=== PATIENT | female | born 1975 ===

== ENCOUNTER 2017-08-13 03:55 | Emergency (ER) | payer SELFPAY ==
[2017-08-13] MEDS ORDERED: Sodium Chloride 0.9% 1,000 ML IV STA (05:05)
--- NOTE | 2017-08-13 05:18 | ED PDOC ---
HPI: General Adult Time Seen by Provider: 08/13/17 04:35 Chief Complaint (Nursing): Headache History Per: Patient, Operations And Intelligence Assistant (Azeri [id number]) Additional Complaint(s): Pt. states for the past 2 days she's had heavy vaginal bleeding associated with pelvic pain. States she usually only has to use 2 pads per day but yesterday she 's had to use 10 and this morning she's had to use 5 already. This morning she developed a gradual onset atraumatic headache localized to the top of her head associated with nausea but no vomiting. Reports a hx of migraine headaches but states this headache is different as her previous headaches are usually localized to the L side of the head. Denies head injury, LOC, N/V/D, fever, dysuria, hematuria, hx of anemia, weakness, palpitations. Past Medical History Reviewed: Historical Data, Nursing Documentation, Vital Signs Vital Signs: Last Vital Signs Temp 98.2 F 08/13/17 04:30 Pulse 63 08/13/17 04:30 Resp 18 08/13/17 04:30 BP 143/74 08/13/17 04:30 Pulse Ox 99 08/13/17 05:26 - Medical History PMH: TIA - Surgical History Surgical History: Cholecystectomy, - Family History Family History: States: No Known Family Hx - Home Medications Home Medications: Ambulatory Orders Medication Instructions Recorded Cyclobenzaprine [Flexeril] 5 mg PO Q8 PRN #15 tab 03/16/16 Naproxen [Naprosyn] 1 tab PO BID PRN #60 tab 03/16/16 Ketorolac Tromethamine [Toradol] 10 mg PO Q6 #30 tab 07/11/16 Ibuprofen [Motrin Tab] 600 mg PO Q6 PRN #15 tab 09/06/16 Ondansetron [Zofran] 4 mg PO Q6H PRN #10 tab 09/06/16 Acetaminophen [Tylenol 325mg tab] 325 mg PO Q4 #30 tab 11/28/16 - Allergies Allergies/Adverse Reactions: Allergies Allergy/AdvReac Type Severity Reaction Status Date / Time No Known Allergies Allergy Verified 08/13/17 04:29 Review of Systems ROS Statement: Except As Marked, All Systems Reviewed And Found Negative Genitourinary Female: Positive for: Vaginal Bleeding, Pelvic Pain Neurological: Positive for: Headache Physical Exam - Physical Exam Appears: Positive for: Well, Non-toxic, No Acute Distress Head Exam: Positive for: ATRAUMATIC, NORMAL INSPECTION, NORMOCEPHALIC Skin: Positive for: Normal Color, Warm. Negative for: Rash Eye Exam: Positive for: EOMI, Normal appearance, PERRL ENT: Positive for: Normal ENT Inspection Neck: Positive for: Normal, Painless ROM Cardiovascular/Chest: Positive for: Regular Rate, Rhythm Respiratory: Positive for: CNT, Normal Breath Sounds Gastrointestinal/Abdominal: Positive for: Normal Exam, Soft. Negative for: Tenderness Back: Positive for: Normal Inspection. Negative for: L CVA Tenderness, R CVA Tenderness Extremity: Positive for: Normal ROM Neurologic/Psych: Positive for: Alert, Oriented - Laboratory Results Urine POC: Negative - ECG O2 Sat by Pulse Oximetry: 99 - Progress ED Course And Treament: Labs ordered. Toradol 15mg IV, reglan 10mg IV, IV NS bolus ordered. Re-evaluation Time: 06:00 (Headache has resolved; pelvic pain has improved but is still present) Condition: Re-examined, Improved Disposition - Clinical Impression Clinical Impression: Vaginal bleeding, Headache - Patient ED Disposition Is Patient to be Admitted: Transfer of Care (Signed out to Dr. Boudreaux pending labs and US results.) - Disposition Disposition: Transfer of Care Disposition Time: 06:06 Condition: STABLE Forms: [facility] (Italian)
[2017-08-13 06:06] LABS: ALB/GLOB RATIO 1.1 (1.0-2.1); ALKALINE PHOSPHATASE 50 U/L (38-126); ALT/SGPT 34 U/L (9-52); AST/SGOT 29 U/L (14-36); BASO % 0.3 % (0.0-2.0); BILIRUBIN,TOTAL 0.3 mg/dl (0.2-1.3); BLOOD UREA NITROGEN 8 mg/dl (7-17); CALCIUM 8.8 mg/dL (8.4-10.2); CARBON DIOXIDE 26 mmol/L (22-30); CHLORIDE 107 mmol/L (98-107); EOS % 0.8 % (0.0-4.0); GFR AFRICAN-AMERICAN > 60; GLUCOSE,RANDOM 97 mg/dL (65-105); LYMPH % 37.3 % (20.0-40.0); MEAN CELL VOLUME 84.9 fl (81.0-99.0); MEAN CORPUSCULAR HEMOGLOBIN 27.8 pg (27.0-31.0); MEAN CORPUSCULAR HGB CONC 32.7 g/dL (33.0-37.0); MEAN PLATELET VOLUME 9.8 fl (7.2-11.7); MONO # 0.5 K/uL (0.0-0.8); MONO % 10.3 % (0.0-10.0); NEUT # 2.7 K/uL (1.8-7.0); NEUT % 51.3 % (50.0-75.0); NRBC % 0.1 % (0.0-0.0); POTASSIUM 3.8 MMOL/L (3.6-5.0); RED CELL DISTRIBUTION WIDTH 13.6 % (11.5-14.5); SODIUM 142 mmol/l (132-148); TOTAL PROTEIN 7.3 G/DL (6.3-8.2); WHITE BLOOD COUNT 5.3 K/uL (4.8-10.8)
[2017-08-13 06:08] LABS: RBC URINE 6236 /hpf (0-3); URINE BILIRUBIN NEGATIVE (NEGATIVE); URINE BLOOD LARGE (NEGATIVE); URINE COLOR RED (YELLOW); URINE GLUCOSE (UA) NEG (Normal); URINE KETONE NEGATIVE (NEGATIVE); URINE LEUKOCYTE ESTERASE NEG Leu/uL (Negative); URINE PROTEIN 100 mg/dL (NEGATIVE); URINE UROBILINOGEN 0.2-1.0 mg/dL (0.2-1.0); WBC URINE 5 /hpf (0-5)
--- NOTE | 2017-08-13 06:31 | ED PDOC ---
- Laboratory Results Result Diagrams: 08/13/17 05:15 08/13/17 05:15 Urine POC: Negative - ECG O2 Sat by Pulse Oximetry: 99 (RA) Pulse Ox Interpretation: Normal Medical Decision Making Medical Decision Making: Time: 6:00 --Patient signed out to me by Donta Bradley PA-C pending labs and CT Time: 7:00 --Patient signed out by me to Dr. Red pending labs and CT Scribe Attestation: Documented by Tommy Kirk, acting as a scribe for Dr. Vishnu Boudreaux MD. Provider Scribe Attestation: All medical record entries made by the Scribe were at my direction and personally dictated by me. I have reviewed the chart and agree that the record accurately reflects my personal performance of the history, physical exam, medical decision making, and the department course for this patient. I have also personally directed, reviewed, and agree with the discharge instructions and disposition. Disposition - Clinical Impression Clinical Impression: Vaginal bleeding, Headache - POA Present On Arrival: None - Disposition Disposition: Transfer of Care Disposition Time: 07:00 Condition: FAIR Additional Instructions: Followup with ROBOTICS SOFTWARE ENGINEER doctor this week. Return to ER for any worsening or persistent bleeding, weakness/dizziness or any concern. Print Language: SLOVENIAN Patient Signed Over To: Bib Red III
--- NOTE | 2017-08-13 07:02 | ED PDOC ---
- Laboratory Results Result Diagrams: 08/13/17 05:15 08/13/17 05:15 Urine POC: Negative - ECG O2 Sat by Pulse Oximetry: 99 (RA) Medical Decision Making Medical Decision Makinam recd pending US for heavy vaginal bleeding [id number] HISTORY: pelvic pain COMPARISON: None available. TECHNIQUE: Transabdominal pelvic ultrasound was performed. FINDINGS: UTERUS: Measures 13.8 x 6.8 x 6.9 cm. Anteverted, normal in size and appearance. No fibroid or other mass lesion seen. ENDOMETRIUM: Measures 5.0 mm in diameter. Unremarkable. CERVIX: No cervical abnormality identified. RIGHT OVARY: Measures 2.5 x 2.9 x 1.6 cm. No solid mass. Normal flow. LEFT OVARY: Measures 2.4 x 2.3 x 2.0 cm. No solid mass. Normal flow. FREE FLUID: No significant free fluid noted. OTHER FINDINGS: None. IMPRESSION: Normal pelvic ultrasound. 1003 Upon provider reevaluation the patients bleeding has improved and she has deferred the pelvic exam. States she will follow up with OBGYN this week. Patient requires no further treatment in the ED at this time and will be discharged home home. Scribe Attestation Documented by Donna Ventura acting as a scribe for Donna Ventura Provider Attestation All medical record entries made by the Scribe were at my direction and personally dictated by me. I have reviewed the chart and agree that the record accurately reflects my personal performance of the history, physical exam, medical decision making, and the department course for this patient. I have also personally directed, reviewed, and agree with the discharge instructions and disposition. Disposition - Clinical Impression Clinical Impression: Vaginal bleeding, Headache - POA Present On Arrival: None - Disposition Disposition: Routine/Home Disposition Time: 09:55 Condition: FAIR Additional Instructions: Followup with BINDERY MACHINE TENDER doctor this week. Return to ER for any worsening or persistent bleeding, weakness/dizziness or any concern. Print Language: ALBANIAN
--- NOTE | 2017-08-13 09:39 | US ---
HISTORY: pelvic pain COMPARISON: None available. TECHNIQUE: Transabdominal pelvic ultrasound was performed. FINDINGS: UTERUS: Measures 13.8 x 6.8 x 6.9 cm. Anteverted, normal in size and appearance. No fibroid or other mass lesion seen. ENDOMETRIUM: Measures 5.0 mm in diameter. Unremarkable. CERVIX: No cervical abnormality identified. RIGHT OVARY: Measures 2.5 x 2.9 x 1.6 cm. No solid mass. Normal flow. LEFT OVARY: Measures 2.4 x 2.3 x 2.0 cm. No solid mass. Normal flow. FREE FLUID: No significant free fluid noted. OTHER FINDINGS: None. IMPRESSION: Normal pelvic ultrasound.
[2017-08-13 10:13] VITALS: BP 131/77; PULSE 61; RESP 17; TEMP 97.9
[2017-08-13 20:44] VITALS: O2SAT 99
== END 2017-08-13 10:11 | disposition home or self-care (01) ==
LOC: H.ER 03:55
DX: N93.9 Abnormal uterine and vaginal bleeding, unspecified (principal); R51 Headache; Z86.73 Personal history of transient ischemic attack (TIA), and cerebral infarction without residual deficits
CPT/HCPCS: 76856; 80053; 81003; 81025; 85025; 86850; 86900; 96361; 96374; 96375; 99285; J1885; J2765; J7040

== ENCOUNTER 2017-08-31 16:05 | Emergency (ER) | payer SELFPAY ==
[2017-08-31 16:16] VITALS: BP 142/75; RESP 16; TEMP 97.8; O2SAT 99
--- NOTE | 2017-08-31 17:42 | ED PDOC ---
HPI: Headache Time Seen by Provider: 08/31/17 16:39 Chief Complaint (Nursing): Headache Chief Complaint (Provider): Palpitations History Per: Patient History/Exam Limitations: no limitations Onset/Duration Of Symptoms: Days (x 3) Current Symptoms Are (Timing): Intermittent Episodes Additional Complaint(s): Yolie is a 42 y/o female who presents to the ED complaining of palpitations associated with a headache, intermittently for the past 3 days. No chest pain, shortness of breath, fever, cough, syncope, or dizziness. Headache is described as a typical for migraine headaches, which she has had in the past. This is not a new symptom for her. Took Excedrin with significant improvement. Patient reports mild photophobia but no fever, neck pain, vision changes, numbness, or weakness. PMD: Provider TBD Past Medical History Reviewed: Historical Data, Nursing Documentation, Vital Signs Vital Signs: Last Vital Signs Temp 97.8 F 08/31/17 16:13 Pulse 78 08/31/17 16:13 Resp 16 08/31/17 16:13 BP 142/75 08/31/17 16:13 Pulse Ox 99 08/31/17 16:13 - Medical History PMH: Migraine, TIA - Surgical History Surgical History: Cholecystectomy, - Family History Family History: States: Unknown Family Hx - Home Medications Home Medications: Ambulatory Orders Medication Instructions Recorded Cyclobenzaprine [Flexeril] 5 mg PO Q8 PRN #15 tab 03/16/16 Naproxen [Naprosyn] 1 tab PO BID PRN #60 tab 03/16/16 Ketorolac Tromethamine [Toradol] 10 mg PO Q6 #30 tab 07/11/16 Ibuprofen [Motrin Tab] 600 mg PO Q6 PRN #15 tab 09/06/16 Ondansetron [Zofran] 4 mg PO Q6H PRN #10 tab 09/06/16 Acetaminophen [Tylenol 325mg tab] 325 mg PO Q4 #30 tab 11/28/16 - Allergies Allergies/Adverse Reactions: Allergies Allergy/AdvReac Type Severity Reaction Status Date / Time No Known Allergies Allergy Verified 08/13/17 04:29 Review of Systems ROS Statement: Except As Marked, All Systems Reviewed And Found Negative Constitutional: Negative for: Fever, Chills Eyes: Positive for: Other (mild photophobia). Negative for: Vision Change Cardiovascular: Positive for: Palpitations. Negative for: Chest Pain Respiratory: Negative for: Cough, Shortness of Breath Musculoskeletal: Negative for: Neck Pain Neurological: Positive for: Headache. Negative for: Weakness, Numbness, Dizziness, Other (Syncope) Physical Exam - Reviewed Nursing Documentation Reviewed: Yes Vital Signs Reviewed: Yes - Physical Exam Appears: Positive for: Well, Non-toxic, No Acute Distress Head Exam: Positive for: ATRAUMATIC, NORMAL INSPECTION, NORMOCEPHALIC Skin: Positive for: Normal Color, Warm, Dry Eye Exam: Positive for: EOMI, Normal appearance, PERRL Neck: Positive for: Normal, Painless ROM, Supple Cardiovascular/Chest: Positive for: Regular Rate, Rhythm. Negative for: Murmur Respiratory: Positive for: Normal Breath Sounds. Negative for: Accessory Muscle Use, Respiratory Distress Gastrointestinal/Abdominal: Positive for: Normal Exam, Soft. Negative for: Tenderness Back: Positive for: Normal Inspection. Negative for: Vertebral Tenderness Extremity: Positive for: Normal ROM. Negative for: Pedal Edema, Deformity Neurologic/Psych: Positive for: Alert, Oriented. Negative for: Motor/Sensory Deficits - Laboratory Results Result Diagrams: 08/31/17 17:52 08/31/17 17:52 - ECG ECG: Positive for: Interpreted By Me, Viewed By Me ECG Rhythm: Positive for: Normal QRS, Sinus Rhythm. Negative for: ST/T Changes Rate: 64 O2 Sat by Pulse Oximetry: 99 (RA) Pulse Ox Interpretation: Normal - Progress Re-evaluation Time: 18:40 Condition: Re-examined, Improved Medical Decision Making Medical Decision Making: Time: 17:09 Impression: Palpitations, migraine headache. Differentials include anxiety, thyroid dysfunction, less likely cardioarrythmia. Initial Plan: --EKG --BMP --TSH --Troponin I --CBC --Urine --Urine dipstick --Reglan 10 mg IV --Toradol 30 mg IV --Pending reevaluation Scribe Attestation: Documented by Josiane Lam, acting as a scribe for Richard Rebollar MD Provider Scribe Attestation: All medical record entries made by the Scribe were at my direction and personally dictated by me. I have reviewed the chart and agree that the record accurately reflects my personal performance of the history, physical exam, medical decision making, and the department course for this patient. I have also personally directed, reviewed, and agree with the discharge instructions and disposition. Disposition - Clinical Impression Clinical Impression: Migraine, Palpitations - Patient ED Disposition Is Patient to be Admitted: No Doctor Will See Patient In The: Office Counseled Patient/Family Regarding: Studies Performed, Diagnosis, Need For Followup - Disposition Referrals: [facility] [Outside] Disposition: Routine/Home Disposition Time: 18:48 Condition: GOOD Additional Instructions: Follow up with your PCP in 2-3 days. Instructions: Palpitations (ED), Migraine Headache (ED) Print Language: MALTESE
[2017-08-31 18:03] VITALS: PULSE 64
[2017-08-31 18:06] LABS: BASO % 0.5 % (0.0-2.0); EOS # 0.1 K/uL (0.0-0.7); EOS % 0.9 % (0.0-4.0); HEMATOCRIT 37.5 % (34.0-47.0); LYMPH # 1.6 K/uL (1.0-4.3); LYMPH % 22.8 % (20.0-40.0); MEAN CELL VOLUME 84.9 fl (81.0-99.0); MEAN CORPUSCULAR HEMOGLOBIN 27.8 pg (27.0-31.0); MEAN CORPUSCULAR HGB CONC 32.8 g/dL (33.0-37.0); MEAN PLATELET VOLUME 9.5 fl (7.2-11.7); MONO # 0.6 K/uL (0.0-0.8); MONO % 8.9 % (0.0-10.0); NEUT # 4.7 K/uL (1.8-7.0); NEUT % 66.9 % (50.0-75.0); RED CELL DISTRIBUTION WIDTH 13.3 % (11.5-14.5); WHITE BLOOD COUNT 7.1 K/uL (4.8-10.8)
[2017-08-31 18:38] LABS: BLOOD UREA NITROGEN 12 mg/dl (7-17); CALCIUM 9.4 mg/dL (8.4-10.2); CARBON DIOXIDE 26 mmol/L (22-30); CHLORIDE 105 mmol/L (98-107); GFR AFRICAN-AMERICAN > 60; GLUCOSE,RANDOM 104 mg/dL (65-105); POTASSIUM 4.2 MMOL/L (3.6-5.0); SODIUM 141 mmol/l (132-148)
--- NOTE | 2017-09-02 17:49 | CARD ---
APPROVED REPORT EKG Measurement Heart [id number] TX [id number] <Conclusion> Normal sinus rhythm Normal ECG
== END 2017-08-31 19:16 | disposition home or self-care (01) ==
LOC: H.ER 16:05
DX: G43.909 Migraine, unspecified, not intractable, without status migrainosus (principal); R00.2 Palpitations; Z86.73 Personal history of transient ischemic attack (TIA), and cerebral infarction without residual deficits
CPT/HCPCS: 80048; 81025; 84484; 85025; 93005; 96374; 96375; 99283; J1885; J2765

== ENCOUNTER 2017-12-01 18:30 | Emergency (ER) | payer OTHER ==
[2017-12-01 18:53] VITALS: TEMP 98.4
--- NOTE | 2017-12-01 20:20 | ED PDOC ---
HPI: Headache Time Seen by Provider: 12/01/17 19:13 Chief Complaint (Nursing): Headache History Per: Patient History/Exam Limitations: no limitations Onset/Duration Of Symptoms: Days Current Symptoms Are (Timing): Still Present Severity: Moderate Quality: Burning Preceeding Symptoms: None Associated Symptoms: Nausea Additional History Per: Patient Additional Complaint(s): Hx of migraine JADE p/w headache, states it started yesterday, occipital, states it feels like a burning that radiates into her neck. Nonthunderclap and not maximal at onset. Has never followed up with a neurologist, patient states that she was never given a referral. +nausea, no vomiting. No fevers, no neck stiffness. No recent travel/sick contacts. No numbness, weakness, tingling, loss of function. Past Medical History Reviewed: Historical Data, Nursing Documentation, Vital Signs Vital Signs: Last Vital Signs Temp 98.4 F 12/01/17 18:50 Pulse 71 12/01/17 18:50 Resp 16 12/01/17 18:50 BP 103/66 12/01/17 18:50 Pulse Ox 100 12/01/17 18:50 - Medical History PMH: Migraine, TIA - Surgical History Surgical History: Cholecystectomy, - Family History Family History: States: Unknown Family Hx - Home Medications Home Medications: Ambulatory Orders Medication Instructions Recorded Cyclobenzaprine [Flexeril] 5 mg PO Q8 PRN #15 tab 03/16/16 Naproxen [Naprosyn] 1 tab PO BID PRN #60 tab 03/16/16 Ketorolac Tromethamine [Toradol] 10 mg PO Q6 #30 tab 07/11/16 Ibuprofen [Motrin Tab] 600 mg PO Q6 PRN #15 tab 09/06/16 Ondansetron [Zofran] 4 mg PO Q6H PRN #10 tab 09/06/16 Acetaminophen [Tylenol 325mg tab] 325 mg PO Q4 #30 tab 11/28/16 Ketorolac Tromethamine [Toradol] 10 mg PO BID #30 tab 12/01/17 - Allergies Allergies/Adverse Reactions: Allergies Allergy/AdvReac Type Severity Reaction Status Date / Time No Known Allergies Allergy Verified 08/13/17 04:29 Review of Systems ROS Statement: Except As Marked, All Systems Reviewed And Found Negative Gastrointestinal: Positive for: Nausea. Negative for: Vomiting Neurological: Positive for: Headache. Negative for: Weakness, Numbness, Incoordination, Change in Speech, Confusion, Seizures, Altered Mental Status Physical Exam - Reviewed Nursing Documentation Reviewed: Yes Vital Signs Reviewed: Yes - Physical Exam Appears: Positive for: Well, Non-toxic, No Acute Distress Head Exam: Positive for: ATRAUMATIC, NORMAL INSPECTION, NORMOCEPHALIC Skin: Positive for: Normal Color, Warm, DRY Eye Exam: Positive for: EOMI, Normal appearance, PERRL ENT: Positive for: Normal ENT Inspection Neck: Positive for: Normal, Painless ROM Cardiovascular/Chest: Positive for: Regular Rate, Rhythm Respiratory: Positive for: CNT, Normal Breath Sounds Gastrointestinal/Abdominal: Positive for: Normal Exam, Bowel Sounds, Soft Back: Positive for: Normal Inspection Extremity: Positive for: Normal ROM Neurologic/Psych: Positive for: Alert, aviation project engineer II-XII, Oriented, Cerebellar Tests ( normal), Gait (normal). Negative for: Motor/Sensory Deficits, Mood/Affect ( normal), Aphasia, Facial Droop - ECG O2 Sat by Pulse Oximetry: 100 Pulse Ox Interpretation: Normal Medical Decision Making Medical Decision Making: A/P: Hx of migraines p/w acute JADE -patient appears very well appearing, no signs of meningitis/SAH or pathological JADE -will treat w/ toradol/reglan for migraine/tension JADE -no CT needed at this time, patient states she's had prior imaging that was normal. Reevaluation: patient is feeling better and is comfortable going home. Advised patient to f/u w/ neurologist. return precautions discussed. Scribe Attestation: Documented by Claire Ryan, acting as a scribe for Jerry Scott MD. Provider Scribe Attestation: All medical record entries made by the Scribe were at my direction and personally dictated by me. I have reviewed the chart and agree that the record accurately reflects my personal performance of the history, physical exam, medical decision making, and the department course for this patient. I have also personally directed, reviewed, and agree with the discharge instructions and disposition. Disposition - Clinical Impression Clinical Impression: Headache - Disposition Referrals: Diego Murillo MD [Medical Doctor] - Disposition: Routine/Home Disposition Time: 23:00 Condition: STABLE Prescriptions: Ketorolac Tromethamine [Toradol] 10 mg PO BID #30 tab Instructions: Headache, Adult, Migraine Headache (DC) Forms: [facility] (Swedish) Print Language: ICELANDIC
[2017-12-01] MEDS ORDERED: Lactated Ringer's 1,000 ML IV SCH (20:30)
[2017-12-01 22:49] VITALS: BP 116/76; PULSE 70; RESP 18
[2017-12-01 22:59] VITALS: O2SAT 100
== END 2017-12-01 23:11 | disposition home or self-care (01) ==
LOC: H.ER 18:30
DX: G43.909 Migraine, unspecified, not intractable, without status migrainosus (principal); Z86.73 Personal history of transient ischemic attack (TIA), and cerebral infarction without residual deficits
CPT/HCPCS: 94660; 96374; 99283; J1885; J2765; J7120

== ENCOUNTER 2017-12-24 19:38 | Emergency (ER) | payer OTHER ==
[2017-12-24 20:14] VITALS: BP 120/67; PULSE 61; RESP 18; TEMP 98; O2SAT 100
--- NOTE | 2017-12-24 21:04 | ED PDOC ---
Arrival/HPI - General Chief Complaint: Back Pain Time Seen by Provider: 12/24/17 20:52 Historian: Patient - History of Present Illness Narrative History of Present Illness (Text): 42 year old female presents to ED with complaints of atraumatic left-sided lower back pain x1 day and has no past medical history. (-) urinary symptoms. Notes that she had a similar pain several years ago. [employer] [place] Winder: [id number] PCP: CF Time/Duration: 24 hours Symptom Course: Unchanged Past Medical History - Provider Review Nursing Documentation Reviewed: Yes - Travel History Have you recently traveled outside [place] w/in the past 3 mons?: Yes - Past History Past History: Non-Contributing - Infectious Disease Hx of Infectious Diseases: None - Past Medical History Past Medical History: Non-Contributing - Neurological Hx Migraine: Yes Hx Transient Ischemic Attacks (TIA): Yes - Psychiatric Hx Substance Use: No - Surgical History Hx Cholecystectomy: Yes - Anesthesia Hx Anesthesia: Yes Hx Anesthesia Reactions: No Family/Social History - Physician Review Nursing Documentation Reviewed: Yes Family/Social History: No Known Family HX Smoking Status: Never Smoked Hx Alcohol Use: Yes Hx Substance Use: No Allergies/Home Meds Allergies/Adverse Reactions: Allergies No Known Allergies Allergy (Verified 08/13/17 04:29) Review of Systems - Patients Enrolled in Hospice Community Liaison Initiative [X]: A conversation was conducted with the primary medical doctor. - Physician Review All systems were reviewed & negative as marked: Yes - Review of Systems Genitourinary Female: Dysuria. absent: Frequency, Hematuria, Urine Output Changes Musculoskeletal: Back Pain Physical Exam Vital Signs Reviewed: Yes Vital Signs Temp Pulse Resp BP Pulse Ox 12/24/17 20:09 98 F 61 18 120/67 100 - Systems Exam Respiratory/Chest: No: Respiratory Distress Back: Present: Paraspinal Tenderness (TTP of the left paraspinal lumbar region) . No: Normal Inspection, Midline Tenderness Neurological: Present: Gait Normal (patient able to ambulate) Medical Decision Making ED Course and Treatment: 12/24/17 20:52 Initial impression: musculoskeletal pain Initial plan: * UA Scribe Attestation: Documented by Alison Douglas, acting as a scribe for David Renee PA-C. Provider Scribe Attestation: All medical record entries made by the Scribe were at my direction and personally dictated by me. I have reviewed the chart and agree that the record accurately reflects my personal performance of the history, physical exam, medical decision making, and the department course for this patient. I have also personally directed, reviewed, and agree with the discharge instructions and disposition. - Lab Interpretations Lab Results: Lab Results 12/24/17 21:23: Urine Color Yellow, Urine Clarity Cloudy, Urine pH 7.0, Ur Specific [place] 1.020, Urine Protein Negative, Urine Glucose (UA) Neg, Urine Ketones Negative, Urine Blood Negative, Urine Nitrate Negative, Urine Bilirubin Negative, Urine Urobilinogen 0.2-1.0, Ur Leukocyte Esterase Small, Urine RBC ( Auto) 3, Urine Microscopic WBC 1, Ur Squamous Epith Cells 27 H, Urine Bacteria Rare, Hyaline Casts 0-2 - Medication Orders Current Medication Orders: Discontinued Medications Acetaminophen (Tylenol 325mg Tab) 650 mg PO STAT STA Stop: 12/24/17 21:34 Last Admin: 12/24/17 21:47 Dose: 650 mg Cyclobenzaprine HCl (Flexeril) 10 mg PO HS [facility] Last Admin: 12/24/17 22:24 Dose: Ketorolac Tromethamine (Toradol) 60 mg IM ONCE ONE Stop: 12/24/17 21:34 Last Admin: 12/24/17 21:47 Dose: 60 mg MAR Pain Assessment Document 12/24/17 21:47 CS (Rec: 12/24/17 21:48 CS [id number]) Pain Reassessment Is this a pain reassessment? No Location Pain Location Body Site Back Description Description Constant Intensity of Pain at present 6 Acceptable Level of Pain 2 Pain Behavior Guarding Aggravating Factors ADL's Alleviating Factors/Management Medication Techniques Alleviating Factors Medication IM Administration Charges Document 12/24/17 21:47 CS (Rec: 12/24/17 21:48 CS [id number]) Injection Site MAR Injection Site Right Deltoid Charges for Administration # of IM Administrations 1 Disposition/Present on Arrival - Present on Arrival Any Indicators Present on Arrival: Yes - Disposition Have Diagnosis and Disposition been Completed?: Yes Diagnosis: Lumbar back pain, Low back pain, Chronic back pain Disposition: HOME/ ROUTINE Disposition Time: 22:52 Condition: GOOD Discharge Instructions (ExitCare): Low Back Pain in Adults, Low Back Pain (DC) , Do I Need an X-ray (or Other Test) for Low Back Pain? Forms: [email or web address] (Botswanan)
[2017-12-24 21:49] LABS: SQUAMOUS EPITHIAL 27 /hpf (0-5); URINE BACTERIA RARE (<OCC); URINE BILIRUBIN NEGATIVE (NEGATIVE); URINE BLOOD NEGATIVE (NEGATIVE); URINE CLARITY CLOUDY (Clear); URINE COLOR YELLOW (YELLOW); URINE GLUCOSE (UA) NEG (Normal); URINE HYALINE CAST 0-2 /hpf (0-2); URINE LEUKOCYTE ESTERASE SMALL Leu/uL (Negative); URINE PROTEIN NEGATIVE (NEGATIVE); URINE UROBILINOGEN 0.2-1.0 mg/dL (0.2-1.0)
== END 2017-12-24 22:53 | disposition home or self-care (01) ==
LOC: H.ER 19:38
DX: M54.5 Low back pain (principal); G89.29 Other chronic pain; Z86.73 Personal history of transient ischemic attack (TIA), and cerebral infarction without residual deficits
CPT/HCPCS: 81003; 81025; 96372; 99284; J1885

== ENCOUNTER 2018-08-14 01:25 | Emergency (ER) | payer OTHER, SELFPAY ==
[2018-08-14 02:02] VITALS: BMI 35.0
[2018-08-14 02:07] VITALS: BP 136/84; PULSE 67; RESP 18; TEMP 98.2; O2SAT 99
[2018-08-14] MEDS ORDERED: Sodium Chloride 0.9% 1,000 ML IV STA (02:19)
--- NOTE | 2018-08-14 02:25 | ED PDOC ---
HPI: Headache Time Seen by Provider: 08/14/18 01:43 Chief Complaint (Nursing): Headache Chief Complaint (Provider): Headache History Per: Patient History/Exam Limitations: no limitations Onset/Duration Of Symptoms: Days (x1) Associated Symptoms: Nausea. denies: Photophobia, Vomiting Additional Complaint(s): Patient is a 43 y/o female with history of migraines who presents to the ED complaining of headache, onset x1 day ago. Patient reports she woke up with a headache this morning that was similar to previous migraines but more intense than normal. She states she took Excedrin wit no relief. She reports having nausea but denies vomiting, photophobia, fever, or neck pain or stiffness. Her headache does not have a thunderclap quality to it. She states she has had to come to the ED in the past for unimproved migraine. Past Medical History Reviewed: Historical Data, Nursing Documentation, Vital Signs Vital Signs: Last Vital Signs Temp 98.2 F 08/14/18 02:02 Pulse 67 08/14/18 02:02 Resp 18 08/14/18 02:02 BP 136/84 08/14/18 02:02 Pulse Ox 99 08/14/18 02:02 - Medical History PMH: Migraine, TIA - Surgical History Surgical History: Cholecystectomy, - Family History Family History: States: Unknown Family Hx - Social History Alcohol: Occasional - Home Medications Home Medications: Ambulatory Orders Medication Instructions Recorded Cyclobenzaprine [Flexeril] 5 mg PO Q8 PRN #15 tab 03/16/16 Naproxen [Naprosyn] 1 tab PO BID PRN #60 tab 03/16/16 Ketorolac Tromethamine [Toradol] 10 mg PO Q6 #30 tab 07/11/16 Ibuprofen [Motrin Tab] 600 mg PO Q6 PRN #15 tab 09/06/16 Ondansetron [Zofran] 4 mg PO Q6H PRN #10 tab 09/06/16 Acetaminophen [Tylenol 325mg tab] 325 mg PO Q4 #30 tab 11/28/16 Ketorolac Tromethamine [Toradol] 10 mg PO BID #30 tab 12/01/17 Acetaminophen/Butalbital/Caf 1 - 2 tab PO Q6 PRN #12 tab 08/14/18 [Fioricet] - Allergies Allergies/Adverse Reactions: Allergies Allergy/AdvReac Type Severity Reaction Status Date / Time No Known Allergies Allergy Verified 08/14/18 02:02 Review of Systems ROS Statement: Except As Marked, All Systems Reviewed And Found Negative Constitutional: Negative for: Fever Eyes: Positive for: Other (photophobia) Gastrointestinal: Positive for: Nausea. Negative for: Vomiting Musculoskeletal: Negative for: Neck Pain Neurological: Positive for: Headache Physical Exam - Reviewed Nursing Documentation Reviewed: Yes Vital Signs Reviewed: Yes - Physical Exam Appears: Positive for: Non-toxic, No Acute Distress Head Exam: Positive for: ATRAUMATIC, NORMOCEPHALIC Skin: Positive for: Normal Color, Warm, DRY Eye Exam: Positive for: EOMI, Normal appearance, PERRL Neck: Positive for: Normal, Painless ROM Cardiovascular/Chest: Positive for: Regular Rate, Rhythm. Negative for: Murmur Respiratory: Positive for: Normal Breath Sounds. Negative for: Respiratory Distress Gastrointestinal/Abdominal: Positive for: Normal Exam, Soft. Negative for: Tenderness Extremity: Positive for: Normal ROM. Negative for: Pedal Edema, Deformity Neurologic/Psych: Positive for: Alert, Oriented. Negative for: Motor/Sensory Deficits - Laboratory Results Result Diagrams: 08/14/18 02:40 08/14/18 02:40 - ECG O2 Sat by Pulse Oximetry: 99 (RA) Pulse Ox Interpretation: Normal Medical Decision Making Medical Decision Making: Time: 02:18 Impression: 43 y/o female with migraine Initial Plan: CMP TSH CBC w/ diff IV fluids Reglan 10 mg Toradol 30 mg UA Time: 04:13 Labs reviewed no clinically significant abnormalities. Patient reports symptoms have resolved at this time. Diagnosis is migraine. Patient conditioned is improved and is ready for discharge. Scribe Attestation: Documented by Osvaldo Ruvalcaba, acting as a scribe for Vishnu Boudreaux MD. Provider Scribe Attestation: All medical record entries made by the Scribe were at my direction and personally dictated by me. I have reviewed the chart and agree that the record accurately reflects my personal performance of the history, physical exam, medical decision making, and the department course for this patient. I have also personally directed, reviewed, and agree with the discharge instructions and disposition. Disposition - Clinical Impression Clinical Impression: Migraine - Patient ED Disposition Is Patient to be Admitted: No - Disposition Disposition: Routine/Home Disposition Time: 04:13 Condition: IMPROVED Additional Instructions: ANUPAMA VALLES, thank you for letting us take care of you today. You r provider was Vishnu Boudreaux MD and you were treated for HEADACHE. The emergency medical care you received today was directed at your acute symptoms. If you were prescribed any medication, please fill it and take as directed. It may take several days for your symptoms to resolve. Return to the Emergency Department if your symptoms worsen, do not improve, or if you have any other problems. Please contact your doctor or call one of the physicians/clinics you have been referred to that are listed on the Patient Visit Information form that is included in your discharge packet. Bring any paperwork you were given at discharge with you along with any medications you are taking to your follow up visit. Our treatment cannot replace ongoing medical care by a primary care provider outside of the emergency department. Thank you for allowing the [facility] team to be part of your care today. If you had an X-Ray or CT scan: A Radiologist will review the ED reading if any change in treatment is needed we will contact you. If you had a blood, urine, or wound culture: It will take several days for the results, if any change in treatment is needed we will contact you. If you had an STI test: It will take 48 hours for the results. Please call after 1 week if you have not heard back. Prescriptions: Acetaminophen/Butalbital/Caf [Fioricet] 1 - 2 tab PO Q6 PRN #12 tab PRN Reason: Headache Instructions: Migraine Headache (DC) Forms: [employer] (Korean) Print Language: ESTONIAN
[2018-08-14 02:58] LABS: BASO % 0.9 % (0.0-2.0); EOS % 0.6 % (0.0-4.0); HEMOGLOBIN 11.1 g/dL (12.0-16.0); LYMPH # 2.1 K/uL (1.0-4.3); LYMPH % 38.2 % (20.0-40.0); MEAN CELL VOLUME 81.6 fl (81.0-99.0); MEAN CORPUSCULAR HEMOGLOBIN 27.4 pg (27.0-31.0); MEAN CORPUSCULAR HGB CONC 33.6 g/dL (33.0-37.0); MEAN PLATELET VOLUME 9.2 fl (7.2-11.7); MONO # 0.6 K/uL (0.0-0.8); MONO % 11.2 % (0.0-10.0); NEUT # 2.7 K/uL (1.8-7.0); NEUT % 49.1 % (50.0-75.0); NRBC % 0.1 % (0.0-0.0); RBC 4.06 Mil/uL (3.80-5.20); RED CELL DISTRIBUTION WIDTH 15.7 % (11.5-14.5); WHITE BLOOD COUNT 5.4 K/uL (4.8-10.8)
[2018-08-14 03:02] LABS: URINE BACTERIA OCC (<OCC); URINE BILIRUBIN NEGATIVE (NEGATIVE); URINE BLOOD NEGATIVE (NEGATIVE); URINE CLARITY CLEAR (Clear); URINE COLOR COLORLESS (YELLOW); URINE GLUCOSE (UA) NEG (Normal); URINE LEUKOCYTE ESTERASE NEG Leu/uL (Negative); URINE PROTEIN NEGATIVE (NEGATIVE); URINE UROBILINOGEN 0.2-1.0 mg/dL (0.2-1.0)
[2018-08-14 03:16] LABS: ALBUMIN 3.6 g/dL (3.5-5.0); ALT/SGPT 26 U/L (9-52); AST/SGOT 27 U/L (14-36); BLOOD UREA NITROGEN 9 mg/dl (7-17); CALCIUM 8.5 mg/dL (8.4-10.2); GFR NON-AFRICAN AMERICAN > 60
== END 2018-08-14 04:38 | disposition home or self-care (01) ==
LOC: H.ER 01:25
DX: G43.909 Migraine, unspecified, not intractable, without status migrainosus (principal); Z86.73 Personal history of transient ischemic attack (TIA), and cerebral infarction without residual deficits
CPT/HCPCS: 80053; 81003; 81025; 84443; 85025; 99285; J1885; J2765; J7030

== ENCOUNTER 2018-12-08 06:14 | Emergency (ER) | payer SELFPAY ==
[2018-12-08 06:26] VITALS: BMI 29.0
--- NOTE | 2018-12-08 07:27 | ED PDOC ---
HPI: General Adult Time Seen by Provider: 12/08/18 07:03 Chief Complaint (Nursing): Palpitations Chief Complaint (Provider): Palpitations History Per: Patient History/Exam Limitations: no limitations Onset/Duration Of Symptoms: Hrs Have you had recent travel within the past 21 days to any of the following co untries: [place], [place], [place] or [place]?: No Current Symptoms Are (Timing): Still Present Additional Complaint(s): 43yo female, otherwise well and with no past medical history, comes to ER reporting palpitations and hear racing sensation which woke her up from her sleep around 5am today. She denies any associated chest pain, nausea, vomiting or sweats. Patient states the episode self resolved; she additionally reports she has a payroll administrative assistant appointment next month including an echo. She is unsure why the symptoms presented as she never had such episodes in the past. NO additional complaints. PMD: Clinic Past Medical History Reviewed: Historical Data, Nursing Documentation, Vital Signs Vital Signs: Last Vital Signs Temp 98.3 F 12/08/18 06:52 Pulse 95 H 12/08/18 06:52 Resp 16 12/08/18 06:52 BP 124/69 12/08/18 06:52 Pulse Ox 99 12/08/18 06:52 - Medical History PMH: No Chronic Diseases, Migraine, TIA - Surgical History Surgical History: Cholecystectomy, - Family History Family History: States: No Known Family Hx Denies: ME, CAD, Hypertension - Social History Current smoker - smoking cessation education provided: No Alcohol: None Drugs: Denies - Home Medications Home Medications: Ambulatory Orders Medication Instructions Recorded Cyclobenzaprine [Flexeril] 5 mg PO Q8 PRN #15 tab 03/16/16 RX: Naproxen [Naprosyn] 1 tab PO BID PRN #60 tab 03/16/16 Ketorolac Tromethamine [Toradol] 10 mg PO Q6 #30 tab 07/11/16 Ondansetron [Zofran] 4 mg PO Q6H PRN #10 tab 09/06/16 RX: Ibuprofen [Motrin Tab] 600 mg PO Q6 PRN #15 tab 09/06/16 RX: Acetaminophen [Tylenol 325mg 325 mg PO Q4 #30 tab 11/28/16 tab] Ketorolac Tromethamine [Toradol] 10 mg PO BID #30 tab 12/01/17 Acetaminophen/Butalbital/Caf 1 - 2 tab PO Q6 PRN #12 tab 08/14/18 [Fioricet] - Allergies Allergies/Adverse Reactions: Allergies Allergy/AdvReac Type Severity Reaction Status Date / Time No Known Allergies Allergy Verified 08/14/18 02:02 Review of Systems ROS Statement: Except As Marked, All Systems Reviewed And Found Negative Constitutional: Negative for: Fever, Chills, Sweats Cardiovascular: Positive for: Palpitations. Negative for: Chest Pain Respiratory: Negative for: Shortness of Breath Gastrointestinal: Negative for: Nausea, Vomiting Physical Exam - Reviewed Nursing Documentation Reviewed: Yes Vital Signs Reviewed: Yes - Physical Exam Appears: Positive for: Non-toxic, No Acute Distress Head Exam: Positive for: ATRAUMATIC, NORMAL INSPECTION, NORMOCEPHALIC Skin: Positive for: Normal Color, Warm, DRY Eye Exam: Positive for: EOMI, Normal appearance, PERRL ENT: Positive for: Normal ENT Inspection Neck: Positive for: Normal, Painless ROM, Supple Cardiovascular/Chest: Positive for: Regular Rate, Rhythm. Negative for: Tachycardia Respiratory: Positive for: Normal Breath Sounds. Negative for: Wheezing, Respiratory Distress Gastrointestinal/Abdominal: Positive for: Normal Exam, Soft. Negative for: Tenderness Back: Positive for: Normal Inspection. Negative for: L CVA Tenderness, R CVA Tenderness Extremity: Positive for: Normal ROM. Negative for: Pedal Edema Neurologic/Psych: Positive for: Alert, Oriented. Negative for: Motor/Sensory Deficits - Laboratory Results Result Diagrams: 12/08/18 07:47 12/08/18 07:47 - ECG O2 Sat by Pulse Oximetry: 99 (RA) Pulse Ox Interpretation: Normal Medical Decision Making Medical Decision [place] female with spontaneously resolved episode of palpitations Cardiac workup; workup for isolated episode of subjective palpitations; will likely be discharged home Plan: -- Labs -- EKG -- CXR 1024 Labs reviewed, no clinically significant abnormalities. Troponin within normal limits. Patient informed to follow up with payroll administrative assistant as previously scheduled; return parameters discussed. Patient stable for discharge home. Scribe Attestation: Documented by Nolvia Vega acting as a scribe for Liza Kaplan MD Provider Attestation: All medical record entries made by the Scribe were at my direction and persona lly dictated by me. I have reviewed the chart and agree that the record accurately reflects my personal performance of the history, physical exam, medical decision making, and the department course for this patient. I have also personally directed, reviewed, and agree with the discharge instructions and disposition. Disposition - Clinical Impression Clinical Impression: Palpitations Counseled Patient/Family Regarding: Studies Performed, Need For Followup - Disposition Disposition: Routine/Home Disposition Time: 10:25 Condition: IMPROVED Additional Instructions: Follow up with payroll administrative assistant as previously scheduled. Return to the emergency department if symptoms worsen or if new symptoms develop such as chest pain, trouble breathing, or dizziness. Instructions: Palpitations (DC) Forms: [employer] (Nicaraguan) Print Language: L[place]GISH
[2018-12-08 08:02] LABS: BASO # 0.1 K/uL (0.0-0.2); BASO % 1.3 % (0.0-2.0); EOS % 0.7 % (0.0-4.0); HEMOGLOBIN 12.1 g/dL (12.0-16.0); LYMPH # 1.8 K/uL (1.0-4.3); LYMPH % 35.7 % (20.0-40.0); MEAN CELL VOLUME 83.7 fl (81.0-99.0); MEAN CORPUSCULAR HGB CONC 32.3 g/dL (33.0-37.0); MEAN PLATELET VOLUME 9.5 fl (7.2-11.7); MONO # 0.6 K/uL (0.0-0.8); MONO % 11.4 % (0.0-10.0); NEUT # 2.6 K/uL (1.8-7.0); NEUT % 50.9 % (50.0-75.0); RBC 4.46 Mil/uL (3.80-5.20); RED CELL DISTRIBUTION WIDTH 16.2 % (11.5-14.5)
[2018-12-08 08:17] LABS: BLOOD UREA NITROGEN 16 mg/dl (7-17); CALCIUM 8.7 mg/dL (8.4-10.2); GFR NON-AFRICAN AMERICAN > 60
[2018-12-08 10:44] VITALS: BP 118/67; PULSE 77; RESP 16; TEMP 98.1
--- NOTE | 2018-12-08 14:21 | RAD ---
Date of service: 12/08/2018 HISTORY: Palpitations, headache. Possible admission COMPARISON: 08/31/2016 FINDINGS: LUNGS: No active pulmonary disease. PLEURA: No significant pleural effusion identified, no pneumothorax apparent. CARDIOVASCULAR: No atherosclerotic calcification present Normal. OSSEOUS STRUCTURES: No significant abnormalities. VISUALIZED UPPER ABDOMEN: Normal. OTHER FINDINGS: None. IMPRESSION: No active disease. No significant interval change compared to the prior examination(s).
--- NOTE | 2018-12-09 07:37 | CARD ---
APPROVED REPORT Date of service: 12/08/2018 EKG Measurement Heart [id number] <Conclusion> Normal sinus rhythm Normal ECG
[2018-12-11 14:22] VITALS: O2SAT 99
== END 2018-12-08 10:37 | disposition home or self-care (01) ==
LOC: H.ER 06:14
DX: R00.2 Palpitations (principal)